=== PATIENT | female | born 1985 | race Caucasian/White ===

== ENCOUNTER → 2023-10-27 16:29 | Outpatient (REF) | payer OTHER, SELFPAY ==
[2023-10-27 17:37] LABS: % Eosinophils 2.4 % (0-6); % Immature Granulocytes 0.3 % (0-0.5); % Lymphocytes 24.1 % (20.5-51.1); % Monocytes 9.3 % (1.7-9.3); % Neutrophils 62.9 % (42.2-75.2); Absolute Basophils 0.1 10^3/uL (0-0.2); Absolute Eosinophils 0.1 10^3/uL (0-0.7); Absolute Lymphocytes 1.4 10^3/uL (1.2-3.4); Absolute Monocytes 0.5 10^3/uL (0.1-0.6); Absolute Neutrophils 3.6 10^3/uL (1.4-6.5); Hematocrit 36.9 % (37.0-47.0); Mean Corp Hgb Conc. 35.2 g/dL (33.0-37.0); Mean Corpuscular Hgb 32.8 pg (27.0-31.0); Mean Corpuscular Volume 93.2 fL (81.0-99.0); Mean Platelet Volume 9.4 fL (7.4-10.4); Nucleated Red Blood Cells % 0 %; Platelet Count 245 10^3/uL (130-400); Red Blood Cell Count 3.96 10^6/uL (4.20-5.40); Red Cell Dist. Width 12.1 % (11.5-14.5); White Blood Cell Count 5.8 10^3/uL (4.8-10.8)
[2023-10-27 17:51] LABS: ALT (SGPT) 46 U/L (0-35); AST (SGOT) 49 U/L (14-36); Albumin 4.4 g/dl (3.5-5.0); Alkaline Phosphatase 84 U/L (38-126); Blood Urea Nitrogen 13 mg/dl (7-17); Calcium 9.3 mg/dl (8.4-10.2); Carbon Dioxide 26 mmol/L (22-30); Chloride 104 mmol/L (98-107); Glucose 95 mg/dl (70-99); Sodium 137 mmol/L (135-145); Total Bilirubin 0.4 mg/dl (0.2-1.3); eGFR > 60.00
== END ==
LOC: REG 16:29
PROVIDERS: ATTENDING PHYSICIAN Surgery Plastic and Reconstructive Surgery; FAMILY PHYSICIAN Internal Medicine
DX: Z01.818 Encounter for other preprocedural examination (principal)
CPT/HCPCS: 36415; 80053; 85025; 93005

== ENCOUNTER 2023-11-18 06:11 | Day surgery (SDC) | payer OTHER, SELFPAY ==
[2023-11-18] VITALS (14 sets, daily range): BP systolic 3–118; BP diastolic 33–67; BMI 23.6
[2023-11-18] MEDS: TYLENOL 1000 MG PO ×2 (07:16→20:07)
[2023-11-18] MEDS: NORMOSOL-R 1000 IV ×2 (07:16→16:49)
--- NOTE | 2023-11-18 07:28 | W.SUR.PREOP ---
Pre-Operative Surgical Note
-
I have examined this patient prior to the performance of the scheduled procedure.
The patient's condition is unchanged from the time of the current History and
Physical and the patient is able to undergo the scheduled procedure.
--- NOTE | 2023-11-18 07:28 | W.IMMPOSTOP ---
Surgical Immed Post Op Note
-
Primary Surgeon: KIARRA Rivera MD
Assisting Surgeon:
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
Post-op Diagnosis: Same
Procedure Performed: Bilateral immediate prepectoral breast reconstruction after nipple sparing mastectomy
Anesthesia Type: General
Specimen / Cultures: Per Dr. Michele
Estimated Blood Loss: 20 cc
Complications: None
Operative Findings: Expanders inflated to 200 cc
--- NOTE | 2023-11-18 07:29 | OR.RPT ---
Operative Report
Operative Report
Surgeon: KIARRA Rivera MD
Preoperative diagnosis: Genetic predisposition to breast cancer
Postoperative diagnosis: Same
Procedure:
1. Bilateral immediate breast reconstruction with prepectoral tissue expanders
2. Total anterior coverage technique for ADM wrap
3. Spy angiography
Complications: None
Anesthesia: General
EBL: 20 cc
Office Nurse size: 13 cm, filled to 200 cc
Indications for procedure: Patient was referred to me by Dr. Michele with a long history of imaging and lumpectomies with a genetic produced disposition to breast cancer. She was planned to undergo bilateral mastectomy. We discussed her options for
breast reconstruction at length including implant based and autologous options. The patient opted for immediate reconstruction with tissue expanders. She understands that the final reconstruction will be staged. We also discussed the use of ADM
and spy angiography. Risks include reconstructive failure, capsular contracture, infection, delayed wound healing, mastectomy skin flap necrosis, hematoma, seroma and need for repeat procedure. Patient understood these risks and desired to
proceed. Consents were signed accordingly.
Procedure in detail: Patient was identified the preoperative area and the surgical site was confirmed to be the bilateral breast. All questions were answered and consents were confirmed. Patient was then sat upright and normal anatomical landmarks
were marked including midline and inframammary fold. Patient was then taken back to the operating room placed supine on the table. She was prepped and draped in the usual sterile fashion using ChloraPrep solution. A Lawrence catheter was placed. A
timeout for patient safety was performed was confirmed that bilateral SCDs were in place and preoperative antibiotics administered. The procedure began with Dr. Michele first performing the mastectomy. Her op report will be dictated separately.
When I entered the procedure, the first sided mastectomy had been completed. As such I inspected the wound bed of the chest wall and ensured meticulous hemostasis. The base width was measured and appropriate tissue pecan mallow dipper was selected. Two 6 x
16 sheets of Cortiva ADM were soaked in dilute Betadine solution and passed through the skin graft mesher on carrier of 1-1.5. This construct was then draped around the tissue pecan mallow dipper in a total anterior coverage technique. The pecan mallow dipper ADM
construct was then sutured to the chest wall with a series of 2-0 silk sutures. Pectoralis and intercostal blocks were performed with Marcaine. 2 drains were then placed in the preaxial area line with a long subcutaneous tunnel and sutured in
place with 2-0 Prolene sutures. The wound was irrigated with double antibiotic solution and dilute Betadine. The mastectomy incisions were then closed with a series of 3-0 Vicryl's in the deep subcutaneous tissues followed by 3-0 and 4-0
Monocryl's in the deep dermis and superficial skin.
Attention was then placed on the contralateral side after completion of the mastectomy. The exact same procedure was performed. An pecan mallow dipper of the same size was opened and 2 sheets of ADM were soaked in Betadine, meshed, and draped around the
anterior surface of the pecan mallow dipper in a total anterior coverage technique. The construct was then sutured to the chest wall using 2-0 silks. Pectoralis and intercostal blocks were performed. Meticulous hemostasis was ensured and the wound was
irrigated with combination of double antibiotic solution consisting of Ancef and gentamicin as well as dilute Betadine. The wound was closed in layers with 3-0 Vicryl followed by 3-0 Monocryl and 4-0 Monocryl superficial skin.
Spy angiography was performed after closure to ensure adequate vascularity of the bilateral mastectomy flaps. This was confirmed. The wounds were dressed accordingly and a supportive bra was placed. The patient was extubated taken to the PACU for
further care. All counts were correct at the end the case was performed out complication.
[2023-11-18] MEDS: ZOFRAN 4 MG IV ×2 (13:04→20:06)
[2023-11-18] MEDS: D5/0.45%NSS with KCL 20 MEQ 1000 IV ×2 (14:30→21:50)
--- NOTE | 2023-11-18 16:02 | PTCARENOTE ---
Patient admitted for b/l mastectomies and reconstruction.Patient has been following with Dr. Michele for 15 years.Her family has asignificant history of breast cancer.Vital signs are stable.The patient reports her pain at a 1-2 out of 10.Bilateral
breast incisions look good with no drainage.The patient is in her bed with her call kaur in reach.Her is at the bedside.
[2023-11-18] MEDS: NEURONTIN 100 MG PO ×2 (16:48→21:49)
[2023-11-18] MEDS: ULTRAM 100 MG PO (20:06)
[2023-11-18] MEDS: COLACE 100 MG PO (20:06)
[2023-11-18] MEDS: ANCEF 5 IV (20:07)
[2023-11-18] MEDS: BUSPAR 15 MG PO (21:48)
[2023-11-18] MEDS: PROTONIX 40 MG PO (21:49)
[2023-11-18] MEDS: ZOLOFT 150 MG PO (21:49)
[2023-11-19] MEDS: TYLENOL PO ×2 (00:33→06:25)
--- NOTE | 2023-11-19 00:34 | PTCARENOTE ---
Pt neurovascular + CMS
[2023-11-19] MEDS: ULTRAM 100 MG PO ×2 (03:32→10:34)
[2023-11-19] MEDS: ANCEF 5 IV (03:32)
[2023-11-19] MEDS: ZOFRAN 4 MG IV (03:38)
[2023-11-19 03:50] VITALS: BP 106/67
[2023-11-19 06:22] LABS: Hematocrit 31.5 % (37.0-47.0); Hemoglobin 10.6 g/dL (12.0-16.0)
[2023-11-19] MEDS: D5/0.45%NSS with KCL 20 MEQ 1000 IV (06:26)
[2023-11-19 06:40] LABS: Blood Urea Nitrogen 7 mg/dl (7-17); Calcium 8.4 mg/dl (8.4-10.2); Carbon Dioxide 24 mmol/L (22-30); Chloride 111 mmol/L (98-107); Estimated Creatinine Clearance 89 ml/min; Glucose 116 mg/dl (70-99); Potassium 4.4 mmol/L (3.5-5.1); Sodium 136 mmol/L (135-145); eGFR > 60.00
[2023-11-19 07:45] VITALS: BP 109/66
[2023-11-19] MEDS: BUSPAR 15 MG PO (08:25)
[2023-11-19] MEDS: NEURONTIN 100 MG PO (08:25)
[2023-11-19] MEDS: COLACE 100 MG PO (08:25)
--- NOTE | 2023-11-19 09:57 | W.DCSUMMARY ---
Discharge Summary
Discharge Data
Date of Admission: 11/18/23
Date of Discharge: 11/19/23
-
Pending Results: No
Hospital Course
Admitted for 23 hour observation/ post surgical recovery after bilateral nipple sparing mastectomy and immediate tissue charge authorizer reconstruction.
She followed a routine postoperative course.
On discharge, she was ambulating, voiding, tolerating a regular diet and pain was well controlled on oral pain medications.
VN was arranged for home care and follow up was in the short term for drain management.
Discharge Plan
-
Patient Disposition: Home (Routine Discharge)
Discharge Diagnosis/Procedures: s/p bilateral mastectomy and charge authorizer recon
Condition: Good
Diet: No restrictions
Activity: No strenuous activity
Additional Activity: No heavy lifting >10lbs
Driving Restrictions: Not until seen by your Dr
Bathing Restrictions: OK to Shower
Other Services: VN
Wound Care: Remove dressings if they get wet
Referrals:
Ike Rivera MD [Active] -
UNKNOWN - PT DOES,NOT KNOW [Family Provider] -
Prescriptions:
New
tramadol 50 mg Tablet
50 - 100 mg PO Q6HPRN PRN (Reason: pain) 14 Days Qty: 30 0RF
acetaminophen [Tylenol Extra Strength] 500 mg Tablet
1,000 mg PO Q6 Qty: 90 2RF
docusate sodium 100 mg Capsule
100 mg PO BID Qty: 30 0RF
gabapentin 100 mg Capsule
100 mg PO TID Qty: 90 2RF
diazepam 5 mg Tablet
5 mg PO TIDPRN PRN (Reason: Muscle Spasms) 14 Days Qty: 32 0RF
cefadroxil 500 mg capsule
500 mg PO BID Qty: 42 0RF
Continued
sertraline [Zoloft] 100 mg Tablet
150 mg PO HS
omeprazole 20 mg Tablet,Delayed Release (Dr/Ec)
40 mg PO HS
buspirone 15 mg Tablet
15 mg PO BID
Discharge Orders:
Discharge Patient (As Directed); Ordered 11/19/23
Ordered By: Ike Rivera
Discharge Date and Time
Print Language: BURMESE
--- NOTE | 2023-11-19 10:02 | CM ---
Initial assessment completed with patient who lives with her and 3 children (13-10-7 y/o) in a 1 story home with no basement with 1 step to enter. 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 No DME, no
services. Pharmacy is [facility] in [place], PCP is Dr. Surya Taylor with [facility]. Patient has 4 drains and will need HH VN services. No preferences. Amenable to [facility] which goes to [place]. Will send referral.
--- NOTE | 2023-11-19 10:03 | W.PN.PLAS ---
Today's Communication
-
Discharge to home with VN
Follow up on Friday in office for drain management
Progress Note
Subjective Data
Doing well
pain well controlled
denies SOB
Subjective: Tolerating Regular Diet, Ambulatory, Lawrence Removed and Patient Voided
Objective Data
Vital Signs
Temp Pulse Resp BP Pulse Ox
99.3 F 87 18 109/66 99
11/19/23 07:45 11/19/23 07:45 11/19/23 07:45 11/19/23 07:45 11/19/23 07:45
Intake and Output
11/18/23 11/19/23 11/20/23
06:59 06:59 06:59
Intake Total 1550 / 1550
Output Total 1643 / 1643
Balance -93 / -93
Intake:
Oral fluids 720 / 720
IV fluids (Total) 830 / 830
normosol 350 / 350
IV piggybacks 0 / 0
Output:
Drain Output (Total) 193 / 193
Left Lower Chest A 10 / 10
Left Middle Breast B 70 / 70
Right Middle Breast C 85 / 85
Right Middle Breast D 28 / 28
Urine, Lawrence 1450 / 1450
Other:
Number of approximated MODERATE 2
amounts of urine
PEX:
NAD
No increased WOB
No undrained collections
Drains serosang
Dressings c/d/i
Lab Results
11/19/23 05:46
11/19/23 05:46
Assessment / Plan
s/p bilateral nipple sparing mastectomy and immediate machine silk screen printer recon
Expected postsurgical/dilutional anemia
Multimodal pain control
VN arrangment
Drain management
--- NOTE | 2023-11-19 10:32 | CM ---
Patient has been medically cleared for discharge to home with [facility] services. Patient has arranged for transport home.
[facility] FAX # [phone]
[2023-11-19 11:13] VITALS: BP 117/74
== END 2023-11-19 12:03 | disposition home or self-care (01) ==
LOC: SDS 06:11
PROVIDERS: Surgery Plastic and Reconstructive Surgery; ATTENDING PHYSICIAN Surgery
DX: Z15.01 Genetic susceptibility to malignant neoplasm of breast (principal); N60.12 Diffuse cystic mastopathy of left breast; N60.11 Diffuse cystic mastopathy of right breast
CPT/HCPCS: 19357; 19303; 88305; 88307; 80048; 85014; 85018; C1789; Q4100

== ENCOUNTER 2024-01-28 06:11 | Day surgery (SDC) | payer OTHER, SELFPAY ==
[2024-01-28] VITALS (10 sets, daily range): BP systolic 91–113; BP diastolic 52–71; BMI 22.3
[2024-01-28] MEDS: TYLENOL 1000 MG PO (10:51)
[2024-01-28] MEDS: NORMOSOL-R 1000 IV (11:00)
--- NOTE | 2024-01-28 15:51 | W.IMMPOSTOP ---
Surgical Immed Post Op Note
-
Primary Surgeon: KIARRA Rivera MD
Assisting Surgeon:
Pre-op Diagnosis: history of bilateral surgically acquired absence of breast
Post-op Diagnosis: same
Procedure Performed: bilateral removal of expanders, placement of silicone gel implants, partial capsulectomies, fat grafting to the bilateral breasts
Anesthesia Type: General
Specimen / Cultures: none
Estimated Blood Loss: 30 cc
Complications: none
Operative Findings: as expected
--- NOTE | 2024-01-28 15:53 | OR.RPT ---
Operative Report
Operative Report
Surgeon: KIARRA Rivera MD
Preoperative diagnosis: History of surgically acquired absence of breasts
Postoperative diagnosis: Same
Procedures:
1. Removal of bilateral breast tissue expanders
2. Partial capsulectomies, Bilateral Breast
3. Bilateral insertion of silicone gel cohesive breast implants
4. Revisions to bilateral reconstructed breasts
5. Fat grafting to bilateral reconstructed breast, 180 cc
complications: None
Anesthesia: General
EBL: 30 cc
Implants: Sientra HSC plus smooth round high-profile 565 cc, bilateral
Indications for procedure: Patient is a 38-year-old female with a history of bilateral mastectomy and immediate reconstruction with tissue expanders. She underwent expansion in the office and tolerated well. She presented for second stage breast
reconstruction. A plan was made for removal of the bilateral expanders with partial capsulectomies and insertion of silicone gel implants. Revisions to the reconstructed breast would be performed at that time as with fat grafting for contour.
Risks of implants were reviewed at length including ALCL, BII, rupture, capsular contracture and infection. Risks of liposuction and fat grafting also reviewed including contour irregularities and fat necrosis. Consents were signed accordingly.
Procedure in detail: Patient was identified preoperatively and the surgical site was confirmed to be the bilateral breasts with donor site for fat grafting from the anterior abdomen and lateral flanks. all questions were answered and consents
were confirmed. Patient was taken back to the operating room placed supine on the table. anesthesia was induced and the patient was prepped and draped in the usual sterile fashion using ChloraPrep solution. Timeout for patient safety was
performed and was confirmed that bilateral SCDs were in place and preoperative antibiotics have been administered. Procedure began with the creation of cannula insertion sites using a 15 blade. 1% lidocaine with epinephrine was injected previously
to the sites. Vocals were created and tumescent solution was distributed over the anterior abdomen and lateral flanks. Tumescent solution consisted of 1 L of normal saline with 50 cc of 1% lidocaine and 1 amp of epinephrine with bicarb. Total of
2 L of tumescent solution were infiltrated. Attention was then drawn to the right breast where the previous scar was incised along the inframammary fold and a stairstep incision was made with capsulotomy to remove the tissue child support agent. The pocket
was inspected and was confirmed that all ADM had incorporated well and a partial capsulectomy was performed at the portions where incorporation was incomplete and pocket modifications were required. Meticulous hemostasis was ensured and then the
pocket was rinsed with double antibiotic solution. A gel sizer was placed and it was determined that a 565 cc high-profile implant would best fit. As such a new implant was opened new gloves were donned the pocket was rinsed with double antibiotic
solution followed by Betadine and the skin was reprepped. A Goodson funnel was used to place the 565 cc high-profile Sientra implant into the right breast. Series of 2 oh-0 Vicryl sutures were used to close the implant pocket. The wound was
tentatively closed and attention was drawn to the left side where the exact same procedure was performed. The inframammary fold incision was excised a stairstep incision was made with capsulotomy and removal of the tissue child support agent. The pocket was
revised and partial capsulectomy was performed. The pocket was irrigated with double antibiotic solution followed by dilute Betadine. The skin was reprepped and gloves were donned. A 565 cc high-profile Sientra cohesive gel implant was then
placed using a Goodson funnel on the left side. The IMF on the left side was reinforced with a series of PDS sutures. The wound was then tentatively closed with 2-0 Vicryl's. Attention was then drawn to the abdomen again where liposuction of the
anterior abdomen and flanks was performed using an SAF E procedure.
Was used to collect the fat and clean it prior to reinjection. A total of 600 cc of Lipo aspirate was removed. This resulted in 180 cc of injectable fat. The bilateral IMF incisions as well as a focals were closed. The IMF incisions were closed
with 3-0 and 4-0 Monocryl and the focal incisions were closed with 5-0 fast. 2 stab incisions were then made at the lateral aspect of the areola complex to allow for fat grafting into the upper poles of the contours of the breast. Fat graft was
distributed as needed. The patient was then placed in an upright position to evaluate relative symmetry. Similar amounts of fat was injected with the side with minor differences to adjust for symmetry. Supine and vocals were closed. Wounds were
dressed with bacitracin followed by dry gauze, Tegaderm or Band-Aids. A bra and abdominal binder were placed. The patient was extubated taken the PACU for further care.
all counts were correct at the end the case. The case was performed without complication.
== END 2024-01-28 17:24 | disposition home or self-care (01) ==
LOC: SDS 06:11
PROVIDERS: ATTENDING PHYSICIAN Surgery Plastic and Reconstructive Surgery
DX: Z85.3 Personal history of malignant neoplasm of breast (principal); Z90.13 Acquired absence of bilateral breasts and nipples
CPT/HCPCS: 11970; 19380; 15771; 15772; 19342; 19370; C1789; L8000